=== PATIENT | male | born 1955 | race Caucasian/White ===

== ENCOUNTER 2016-10-10 19:16 | Inpatient (IN) | payer SELFPAY ==
[~2016-10-10] VITALS: Ht 180.3 cm; Wt 77.8 kg
[2016-10-10] VITALS (11 sets, daily range): BP systolic 82–148; BP diastolic 44–113; PULSE 44–67; RESP 18–27; O2SAT 95–100
--- NOTE | 2016-10-10 19:11 | ED.REPORT ---
HPI-Cardiac Arrest Date of Service Oct 10, 2016 ED Provider: Dr. Penny 61 y/o male (not on anticoagulants) with a hx of recurrent PE, Hodgkins disease (treated with radiation), HTN and hypothyroidism presents to the ED via EMS after he was found unconscious post cardiac arrest, approximately 40 minutes ago. As per the police, the pt had been talking to his son and daughter normally. The son left the room for a few minutes and returned to find the pt on the floor. His son did CPR but did not check his pulse initially. When the EMS arrived, the pt was unresponsive (GCS =3) and was lying in a pool of clotting blood around his head. He has a recent hx of blood clots and falls. He had agonal breathing and equal and non-reactive pupils. He also had runs of VTACH. He was given 140 succ and 10 versed total. Since then, he has been bradycardic (lowest at 51). The pt was intubated en route. The pt's family reports that he has been homeless for several months and has not been taking his medications. FAST exam was done and resulted negative. His aorta is normal. Nursing Notes Stated Complaint: POSSIBLE HEAD BLEED Nursing Notes Reviewed: Yes Allergies: Coded Allergies: No Known Allergies (Verified Allergy, Unknown, 10/10/16) General Time Seen by Provider: 19:18 Chief Complaint Cardiac arrest, found dwn Down Time Prior to EMS: 21 - 40 min Hx Obtained From: EMS, Police Arrived By: Ambulance Onset Occurred: 31 - 45 minutes ago Symptom Duration: Since onset Recent Healthcare: No recent doctor visit Similar Sx Previous: No Past Medical History Past Medical History 1. Recurrent pulmonary embolism. Currently, the patient is on chronic anticoagulation therapy with Coumadin. 2. Moderate aortic stenosis. 3. Hodgkin's disease, treated with radiation. 4. Esophageal stricture. 5. Hypertension. 6. Dyslipidemia. 7. Depression requiring voluntary hospitalization at [facility]. 8. Anxiety. 9. Pericardial tamponade secondary to hemorrhage while INR being supratherapeutic of 9. 10. Hypothyroidism. 11. Restless leg syndrome. 12. Sciatica. 13. History of small bowel obstruction requiring lysis of adhesions. 14. Klebsiella pneumonia. 15. History of Rheumatic Fever per ex-. Past Surgical History PAST SURGICAL HISTORY: 1. Appendectomy. 2. Cholecystectomy. 3. Exploratory laparotomy with lysis of adhesions secondary to small bowel obstruction. 4. L-spine surgery. Family History The patient's mother in her 50s from CVA. The patient's father lived into his 70s. Smoking History Unknown if Ever Smoker Social History Other Social History: Homeless Ambulatory Status Independent Review of Systems EMS reports: head bleed Unable to Obtain ROS Patient condition, Intubated Complete sys rev & neg: except as marked. Physical Exam General: Pt moving periodically Head/Eyes: Small abrasion and hematoma to his occiput and bleeding was controlled. Neurologic: Babinski present on the right leg. Initial Vital Signs Vital Signs (First) Date Time Temp Pulse Resp B/P Pulse Ox O2 Delivery O2 Flow Rate FiO2 10/10/16 19:19 97 10/10/16 19:28 51 24 121/113 Mechanical Ventilator Initial VS: Reviewed, Vital signs abnormal Extremities: Vascular intact, Neuro intact, No swelling Skin: Warm, Dry, No cyanosis Alertness: Positive: Responds to pain stimuli Respiratory / Chest: Atraumatic, Breath sounds NL, Breath sounds = bilat, No respiratory distress, No rales, No rhonchi, No wheezing Cardiovascular: Heart sounds NL, No gallop, No murmurs, No rubs Heart Rate / Rhythm: Positive: Bradycardia Abdomen: Atraumatic, Soft, No rebound, BS normoactive, No distention Interpretation & Diagnostics Lab Results Interpretation Result Diagram: 10/10/16194210/10/161942 Test 10/10/16 19:43 10/10/16 19:44 White Blood Count 17.8th/mm3 (3.8-10.1) Red Blood Count 3.54mil/mm3 (4.40-5.80) Hemoglobin 11.6g/dL (13.8-17.2) Hematocrit 35.3% (41.0-50.0) Mean Corpuscular Volume 99.7fL (81-100) Mean Corpuscular Hemoglobin 32.8pg (27.0-35.0) Mean Corpuscular Hemoglobin Concent 32.9% (32.0-37.0) Red Cell Distribution Width 17.1% (12.3-15.4) Platelet Count 636bil/L (150-400) Neutrophils (%) (Auto) 72.8% (40-74) Lymphocytes (%) (Auto) 15.4% (14-46) Monocytes (%) (Auto) 10.9% (4-12) Eosinophils (%) (Auto) 0.1% (0-5) Basophils (%) (Auto) 0.3% (0-3) Prothrombin Time 11.4sec (8.1-12.5) Prothromb Time International Ratio 1.06ratio Sodium Level 140mEq/L (134-144) Potassium Level 4.0mEq/L (3.5-5.2) Chloride Level 97mEq/L (97-108) Carbon Dioxide Level 17mmol/L (18-29) Blood Urea Nitrogen 10mg/dL (8-27) Creatinine 1.02mg/dL (0.76-1.27) Estimat Glomerular Filtration Rate 78mL/min (>59) Glucose Level 200mg/dL (60-99) Calcium Level 8.5mg/dL (8.5-10.1) Magnesium Level 2.3mg/dL (1.6-2.6) Total Bilirubin 0.6mg/dL (0.0-1.2) Aspartate Amino Transf (AST/SGOT) 30U/L (0-50) Alanine Aminotransferase (ALT/SGPT) 12U/L (0-44) Alkaline Phosphatase 105U/L (25-160) Troponin T 0.447ug/L (0.0-0.011) Total Protein 6.2g/dL (6.4-8.4) Albumin 3.5g/dL (3.4-5.0) Salicylates Level < 3.0ug/mL (30-250) Acetaminophen Level < 15.0ug/mL Rx (10-25) Alcohols < 10mg/dL (0-10) Hold Blue Top Tube Received (Received) Hold [place] Top Tube Received (Received) Hold Obrien Top Tube Received (Received) ECG Interpretation ECG Interpretation: Sinus bradycardia. Rate [address] elevation in V3, V4, V5 and V6 Time: 19:44 Interpreted by: ED physician X-Ray Chest Interpretation Chest Xray Interpretation: IMPRESSION: Support lines as above. Questionable focal opacity versus artifact from pacer lead in the right upper lobe. Dictated by: Carol Sutton M.D. on 10/10/2016 at 20:30 Approved by: Carol Sutton M.D. on 10/10/2016 at 20:32 View: Portable, 1 view Interpretation / Wet Read by: Interpret - Radiologist CT Head Interpretation Impression: No acute intracranial process. Signed by Dr. Sutton 10/10/16 19:51 Study: Head CT no contrast Interpretation / Wet Read by: Interpret - Radiologist Re-Eval/Medical Decision Med Decision/Clinical Course The patient came in intubated and went straight to CT, there is concern for possible bleed. CT is negative for stroke or bleed and the patient was moving all extremities requiring sedation. Upon arrival of EMS the patient was breathing but was unresponsive and did have a pulse and pressure. He performed CPR because the patient was unresponsive however he did not check for a pulse. It seems like the patient had a dysrhythmia causing syncope and his EKG here reveals a STEMI. The patient went to [facility]. According to his son he has not been caring for himself, he is in homeless for the past year. Re-Evaluation/Progress #1: Time of Eval: 19:38 Re-Evaluation/Progress Note: FAST exam done and resulted negative. His aorta is normal. Re-Evaluation/Progress #2: Time of Eval: 19:58 Re-Evaluation/Progress Note: Talked to the family. They state the pt has been homeless for a few months and has not been taking his medication. Discussed lab results, imaging results, diagnosis and plan to admit. They understand and agree with the plan. All questions answered. Consultation #1: Referral / Consult Name: Shan Chavez MD Consulted With: Cardiology Call Returned at: 19:52 Note: Dr. Chavez recommends STEMI activation and admiting the pt. Consultation #2: Referral / Consult Name: Vikki Ball DO Consulted With: Hospitalist Call Returned at: 21:47 General Duty Nurse: Will see patient, Agrees with eval, Agrees with plan, Accepts admit Counseled Regarding: Diagnosis, Lab results, Need for admission Discharge & Departure Impression: Primary Impression: ST elevation myocardial infarction (STEMI) Involved coronary artery: unspecified coronary artery Qualified Code: I21.3 - ST elevation (STEMI) myocardial infarction of unspecified site Disposition: ADMITTED TO HOSPITAL All VS Reviewed: Yes Crit Care Except Billable Proc Time Spent: 30-74 minutes Services Performed: Patient management by me, Time spent at bedside, Reviewing test results, Reviewing imaging, Discussing patient care, Documentation in record, Time with fam/surrogate Scribe Attestation Portions of this note were transcribed by Jacques Caballero. I, , personally performed the history, physical exam and medical decision-making;I reviewed and confirmed the accuracy of the information in the transcribed note. Signed by Phylicia Fernandez. 10/10/16 22:22 Susie Penny MD Oct 10, 2016 19:11 Jacques Caballero Oct 10, 2016 20:27
[~2016-10-10 19:16] MED LIST: BUPR100T7 PO; LEVO25TA5 PO; LISI-610 PO; PANT40TA3 PO; QUET25TA73 PO; RIVA20TA PO
[2016-10-10 19:47] LABS: BASOPHILS % (AUTO) 0.3 % (0-3); EOSINOPHILS % (AUTO) 0.1 % (0-5); MONOCYTES % (AUTO) 10.9 % (4-12); Mean Corpuscular Hemoglobin 32.8 pg (27.0-35.0); Mean Corpuscular Volume 99.7 fL (81-100); NEUTROPHILS % (AUTO) 72.8 % (40-74); Platelet Count 636 bil/L (150-400)
[2016-10-10] MEDS ORDERED: Nitroglycerin 50,000 mcg/250 mL D5W Premix IV ONE ×2 (19:55→20:17)
[2016-10-10] MEDS ORDERED: Heparin 5,000 Unit/mL Inj ONE (19:55)
[2016-10-10] MEDS ORDERED: Heparin 25,000 Unit/500 mL 0.45% NS Premix IV ONE (19:56)
[2016-10-10] MEDS ORDERED: fentaNYL-PF 50 mCg/mL 2 mL Inj ONE (19:58)
[2016-10-10] MEDS ORDERED: fentaNYL 2,500 mCg/250 mL IV Premix IV SCH (20:00)
[2016-10-10 20:15] LABS: Magnesium 2.3 mg/dL (1.6-2.6)
[2016-10-10] MEDS ORDERED: Heparin 10,000 Unit/1,000 mL NS Premix IV ONE (20:17)
[2016-10-10] MEDS ORDERED: Heparin 1,000 Unit/mL 10 mL Inj ONE (20:17)
[2016-10-10] MEDS ORDERED: Heparin 1,000 Units/500 mL NS Premix IV ONE (20:17)
[2016-10-10] MEDS ORDERED: Atropine 1 mg/10 mL (Code) Syringe ONE ×3 (20:20→21:00)
[2016-10-10] MEDS ORDERED: Atropine 1 mg/10 mL (Code) Syringe IVPUSH PRN ×3 (20:20→23:00)
[2016-10-10] MEDS ORDERED: 0.9% Sodium Chloride 1,000 ML IV ONE (20:20)
--- NOTE | 2016-10-10 20:33 | DRSVH ---
PROCEDURE: X-RAY CHEST ONE VIEW, PORTABLE ([id number]) INDICATIONS: post intubation TECHNIQUE: One view of the chest was acquired. COMPARISON: None. FINDINGS: Surgical changes and devices: Endotracheal tube is present approximately 35mm superior to the fernando. Nasogastric tube is present with distal tip projecting below the left hemidiaphragm. Lungs and pleura: No pleural effusions or pneumothorax. Questionable increased opacity versus artifa ct from overlying pacer lead within the right upper lobe. Mediastinum: Mediastinal contours appear normal. Heart size is normal. Bones and chest wall: No suspicious bony lesions. Overlying soft tissues appear unremarkable. IMPRESSION: Support lines as above. Questionable focal opacity versus artifact from pacer lead in the right upper lobe. Dictated by: Carol Sutton M.D. on 10/10/2016 at 20:30 Approved by: Carol Sutton M.D. on 10/10/2016 at 20:32
[2016-10-10] MEDS ORDERED: DOPamine 800 mg/250 mL D5W Premix IV ONE (20:59)
[2016-10-10] MEDS ORDERED: Phenylephrine/NS-PF 100 mCg/mL 5 mL Syringe IVPUSH ONE (21:00)
[2016-10-10] MEDS ORDERED: 0.9% Sodium Chloride 500 ML IV ONE (21:20)
[2016-10-10] MEDS ORDERED: Ondansetron 2 mg/mL 2 mL Inj IVPUSH PRN (21:45)
[2016-10-10 21:51] LABS: INR 1.06 ratio
[2016-10-10] MEDS ORDERED: fentaNYL 2,500 mCg/250 mL 2,500 MCG in IV Premix 1 EACH IV SCH (22:46)
[2016-10-10] MEDS ORDERED: 0.9% Sodium Chloride 1,000 ML IV PRN (22:56)
[2016-10-10] MEDS ORDERED: 0.9% Sodium Chloride 250 ML IV PRN (22:56)
--- NOTE | 2016-10-10 23:01 | PCM.HPMED ---
Subjective Date of Service Oct 10, 2016 Primary Provider: Admitting Physician: Shan Chavez MD Primary Care Physician: Miranda Attending Physician: Shan Chavez MD Admit Status: From the Emergency Department Chief Complaint: Syncope History of Present Illness: Patient Isac Tracy 61 y/o male with a history of recurrent pulmonary emboli currently not on anticoagulation, Hodgkins disease in remission after treatment with radiation, HTN and hypothyroidism presents to the ED via EMS after a witnessed ground-level fall leading to unconscious state. Per the family's report the patient was in his normal state of health, besides a recent fall in the shower where the patient claimed to be uninjured, and heading to lunch when he fell backwards striking his head and subsequently following unconsciousness. The son was able to call 911 where they instructed him to begin CPR prior to a pulse check. EMS arrived some 3-5 minutes and the patient was found unresponsive with a GCS score of 3 lying in a pool of blood originating from an occiput contusion. Per ED report from EMS the patient had agonal breathing and equal and nonreactive pupils as well as runs of V. tach the patient was intubated in route using succinate and Versed. Family indicates that the patient has not been taking any medications including any anticoagulation and has been homeless living in his car for approximately one year. The patient one month ago was able to temporarily move into a hotel and begin receiving Social Security. In the [facility] ED the patient was taken to CT for head bleed and clear, FAST exam for abdominal injuries which was negative, however EKG changes including ST elevations in V3 through V6 and elevated troponin gave the patient a likely diagnosis of in STEMI and he was immediately taken to the cardiac catheterization lab where the patient received a balloon angioplasty to his proximal circumflex per nursing reports, the patient also developed a total heart block with temporary pacer in place, however the patient's blood pressure remained relatively stable and his heart rate became bradycardic into the mid to high 40s. The patient continues to have a worsening severe aortic stenosis with significant pressure gradient noted in the cardiac catheterization. Review of Systems: Unable to obtain given patient is intubated and sedated. Allergies Coded Allergies: No Known Allergies (Verified Allergy, Unknown, 10/10/16) Home Medications Family states that the patient has been not taking any recommended medications. PMH Past medical history confirmed with family 1. DVT/Recurrent pulmonary embolism not currently on anticoagulation 2. Moderate aortic stenosis. 3. Hodgkin's disease, treated with radiation. 4. Esophageal stricture. 5. Hypertension. 6. Dyslipidemia. 7. Depression requiring voluntary hospitalization at [facility]. 8. Anxiety. 9. Pericardial tamponade secondary to hemorrhage while INR being supratherapeutic of 9. 10. Hypothyroidism. 11. Restless leg syndrome. 12. Sciatica. 13. History of small bowel obstruction requiring lysis of adhesions. 14. Klebsiella pneumonia. 15. History of Rheumatic Fever per ex-. Surgical History Past surgical history confirmed with family 1. Appendectomy. 2. Cholecystectomy. 3. Exploratory laparotomy with lysis of adhesions secondary to small bowel obstruction. 4. L-spine surgery. Family History The patient's mother in her 50s from CVA. The patient's father lived into his 70s. Sister of ovarian cancer in her 40s. 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: retired [employer] employee Hx Alcohol Use: Yes (sporadic use per family report) Hx Substance Use: No Hx Tobacco Use: Yes Smoking Status: Former Smoker (quit a number of years prior) Years of Smokin Living Arrangement: Homeless Exam Vital Signs Vital Sign - Last Date Time Temp Pulse Resp B/P Pulse Ox O2 Delivery O2 Flow Rate FiO2 10/10/16 22:39 51 87/54 99 50 10/10/16 21:19 27 Mechanical Ventilator Exam General: senior patient with normal body habitus intubated and sedated with c- collar in place in a CCU bed Eyes: Pupils constricted but equal round and reactive to light, anicteric sclera , noninjected conjunctiva HENT: endotracheal tube in place, without nasal discharge or clotted blood or CSF fluid noted, posterior occiput with noted coagulated blood but no acute bleed Neck: Supple, trachea midline, no thyromegaly, no JVD noted however difficult exam given c-collar in place Cardiovascular: Regular rate and rhythm, significant noted systolic ejection murmur at right upper sternal border and at apex, no rubs or gallops noted Lungs: Mild coarse breath sounds noted in the posterior mid and basal lung oswald as well as in the right axillary, clear to auscultation in the anterior lung oswald, no wheezing or rhonchi noted Abdomen: Soft, nontender, nondistended, tympanic to percussion, no organomegaly noted, significant noted well healed bilateral oblique and midline scars from exploratory laparotomy : Ladd catheter in place, pink urine in place Extremities: Without pitting edema, Pulses intact bilaterally radial and dorsalis pedis, right femoral groin site with temporary pacer in place site is without hematoma or erythema Skin: Warm and dry on torso, cool and dry on extremities Neuro: Unable to assess given intubated and sedated Psych: Unable to assess given intubated and sedated Lab and Diagnostics Result Diagram: 10/10/16194210/10/161942 X-Rays, CTs and MRIs X-RAY CHEST ONE VIEW, PORTABLE IMPRESSION: Support lines as above. Questionable focal opacity versus artifact from pacer lead in the right upper lobe. Approved by: Carol Sutton M.D. on 10/10/2016 at 20:32 CT head without contrast 1. No acute intracranial processes Approved by: Carol Sutton M.D. on October 10, 2016 Assessment & Plan Patient Isac Tracy 61 y/o male with a history of recurrent pulmonary emboli currently not on anticoagulation, Hodgkins disease in remission after treatment with radiation, HTN and hypothyroidism presents to the ED via EMS after a witnessed ground-level fall leading to unconscious state. # Acute respiratory arrest - Patient was intubated and sedated in the field following a witnessed ground- level fall with head contusion resulting in an unconscious state - Per ED note EMS reports patient had a GCS score of 3 and was intubated for acute respiratory arrest - The patient remains intubated and sedated post cardiac catheterization for NSTEMI described below - Ventilation order set, with RT following - Initial ABG shows pH of 7.3 with pCO2 26 and pO2 170 - Sedation to be continued with fentanyl, currently holding propofol given relative hypotension # Acute non-ST segment elevation myocardial infarction - In the [facility] ED EKG changes noted ST elevation in leads V3 through V6 consistent with acute lateral infarct - Troponins elevated at 0.44 at admission - Cardiology was consulted from the ED and the patient was taken back to the cardiac catheterization lab immediately after CT head noncontrast failed to reveal an acute intracranial bleed - Critical lesion noted in circumflex resulted in balloon angioplasty without stent placement - Cardiac catheterization failed to show any significant pathology consistent with ST changes in the lateral leads leading to a diagnosis of NSTEMI # Acute bradycardia - Patient developed notable bradycardia into 40s secondary to reported complete heart block while on cardiac catheterization - Temporary paced maker placed while in cardiac catheter lab - Cardiology consulted # Acute high anion gap metabolic acidosis with respiratory compensation - CMP shows anion gap of 26 with bicarbonate of 17 - Initial ABG shows pH of 7.3 with pCO2 26 and pO2 170 - Repeat ABG pH of 7.4 with pCO2 of 14.4 and pO2 188 - ASA negative - methanol, ethylene glycol, ketones and lactic acid order - initial lactic acid has returned at 8.7, however this as a late add on the a blood draw and likely is inaccurate, it will be repeated - Monitor with serial BMPs # Acute hypotension - Patient has remained normotensive in ED as well as during cardiac catheterization - Upon arrival to CCU patient's systolic blood pressure remained in the 80s with maps in the 60s - Patient has received 3700 mL's of normal saline since arrival - 500 mL bolus normal saline failed to significantly improve blood pressures - Continue to monitor - Patient only has peripheral IV lines will require central venous access if significant pressor support is required currently awaiting CT C-spine clearance after fall # Acute Leukocytosis - Family reports the patient was in his standard state of health prior to today' s events - Chest x-ray reported as questionable increased opacity versus artifact from overlying pacer lead within the right upper lobe. - Procalcitonin ordered and pending - UA and sputum culture ordered - Serial a.m. chest x-rays while intubated # Chronic anemia - Hemoglobin of 11.6 with MCV of 99 - FAST exam performed in ED failed to reveal any acute chest or abdominal process - Chest x-ray failed to show a hemothorax - Anemia panel ordered - Monitor with serial CBC # Acute Thrombocytosis - Platelet count of 636,000 - Likely elevated due to acute phase reactant nature of platelets - Monitor # Acute hyperglycemia - Blood glucose elevated at admission - Hemoglobin A1c ordered - Low dose correction scale regular insulin DVT prophylaxis: Heparin drip initiated in ED through cardiac catheterization currently discontinued will initiate subcutaneous heparin 12 hours postcardiac catheterization GI prophylaxis: Not indicated at this time CODE STATUS full Patient is admitted to the CCU on inpatient status with expected length of stay greater than two midnights given presenting symptoms, likely diagnosis, possible complications, and required treatment. Pain Evaluation: Adequate Pain Control GI Prophylaxis: Not indicated VTE Prophylaxis: SCDs, Other (previously on heparin drip during cardiac catheterization) VTE Mechanical Devices: Intermittant Pneumatic CD Resuscitation Status: CPR: Attempt Resuscitation Attending Statement The patient was seen and examined together with house staff on 10/11/2016 and I agree with the history, exam and plan as outlined in the note above. Gary Hernadez DO Oct 10, 2016 23:01 Vikki Ball DO Oct 11, 2016 04:32
[2016-10-11] VITALS (7 sets, daily range): BP systolic 77–101; BP diastolic 42–59; PULSE 51–55; RESP 24–27; O2SAT 99–100
--- NOTE | 2016-10-11 00:11 | ABG ---
DateTimeAnalyzed 00:05:00 -_ pH ____7.396 - 7.350 7.450 pCO2 ___14.4__ -mmHg 35.0 45.0 pO2 188 -mmHg 69.0 116 HCO3- ____8.6__ -mmol/L 22.0 26.0 ABE __-14.5__ -mmol/L -2.0 2.0 tHb ___11.4__ -g/dL O2Hb ___96.7__ -% COHb ____1.5__ -% MetHb ____0.0__ -% sO2 ___97.9__ -% 25.0 FIO2 ___21.0__ -% PEEP ____5.0__ -cmH2O Set_RR ___18.0__ -b/min Vt __500.0__ -L Drawn By md - Date/Time Notified____ 00:11:00 -_ Spontaneous_RR ___27.0__ -b/min Oxygen Device 1 __CANNULA - Notified By MD - Notified Whom RN C.JENIFER - Age 54 -years B 759 -mmHg tO2 ___15.8__ -Vol% John test N/A -
--- NOTE | 2016-10-11 00:13 | NUR ---
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 Intubated showing signs of hyposiz with transfer. Pt also has temporary pacemaker with R groin access. Tele is 100% v paced. SpO2 increased with FiO2 from vent and is currently high 90s on 50% FiO2. RT managing. Pt currently not on any sedation or medication. Only responsive to deep pain stimuli in B feet. Pupils slow to react. Minimal painful response in hands. Awaiting CT of cspine. Pt currently has c collar on for safety as this was not done in initial CT. Pt is supine on vent. OG present to continuos suction. Ladd patent to gravity with minimal output desput being fluid positive > 4L. BP hypotensive but MAP remains in 60s. Family at bedside and aware of plan and pt status. Care ongoing
[2016-10-11] MEDS ORDERED: Dextrose 10% 250 ML IV PRN (00:15)
[2016-10-11] MEDS: Chlorhexidine 0.12% 15 mL Oral Solution MT SCH ×2 (00:30→02:13)
--- NOTE | 2016-10-11 01:00 | CONS ---
[address] [address] CONSULTATION REPORT PATIENT: GHAZAL VILLALOBOS : 1955 MR#: [id number] ADMIT: 10/10/2016 JOB ID: [id number] DATE OF SERVICE: 10/10/2016 CHIEF COMPLAINT: Cardiac arrest. REQUESTING PHYSICIAN: Susie Penny MD HISTORY OF PRESENT ILLNESS: The patient was seen in the emergency department at the request of Dr. Penny. History was obtained through the chart, the patient's son, daughter and [id number]. The patient is intubated and incapable of providing any history. The patient was talking to his son. They were planning to go out for dinner when he suddenly fell. That is all the son knows, but the son did notice some bruising on the patient and apparently the son believes that the patient had fallen earlier in the day as well. According to the daughter, he has history of congestive heart failure. She is not sure who his primary care physician or customer development representative is. The patient has been living as a homeless person according to the patient's daughter. The son states that his father did not complain of any chest discomfort. ALLERGIES: Unknown. MEDICATIONS AT HOME: Unknown. As per chart, it is supposed to be Wellbutrin, levothyroxine, Zestril, pantoprazole, quetiapine, and rivaroxaban. PAST MEDICAL HISTORY: I have reviewed his charts from Cardiology. He was last seen in the Cardiology office in [address] Newsome. According to those notes, the patient has history of aortic stenosis. His last echocardiogram was in 2012, and showed a peak velocity of 3.7 m/sec. His LVEF was 60-70%. In 2009, he had pericardial tamponade which was felt to be secondary to excessive anticoagulation, and he had pericardiocentesis performed. He also has history of severe depression, hypothyroidism and history of Hodgkin's disease, status post mantle radiation. He also has a history of DVT as well as multiple pulmonary emboli. REVIEW OF SYSTEMS: Not possible. FAMILY HISTORY: Not possible. The patient is intubated. PERSONAL HISTORY: As per HPI. He was a heavy smoker. PHYSICAL EXAMINATION: On examination, intubated. The patient is somewhat restless. He is starting to breathe on his own. He is moving all four limbs. NECK: In a neck collar. Chest: Clear to anteriorly. Heart sounds S1, S2, regular. Systolic murmur at the base. Abdomen is soft. Extremities: Negative for CCE. RUBBER MOLDER: The patient is heavily sedated. ELECTROCARDIOGRAM: Sinus rhythm, with query anterolateral MO, age unknown. There are some Q-waves in the anterior leads. It is difficult to get a still baseline. The patient is, as mentioned, restless and the EKG is hard to interpret. ASSESSMENT AND PLAN: This gentleman has h/o , CHF and multiple comorbidities, his EKG is suggestive of a recent cardiac event. I feel it would be appropriate to take him to the roofing laborer. I had a long discussion with the patient's family. They have consented to proceed ahead with angiography. Risks, benefits were explained. His son signed the consent.The patient will undergo angiography, and further management will be dictated by the results of his angiogram. Overall prognosis is guarded. TIME SPENT: Approximately 75 minutes were spent in organizing the patient's care. NATE
--- NOTE | 2016-10-11 01:44 | CS94 ---
[address] [address] DIAGNOSTIC CARDIAC CATHETERIZATION PATIENT: GHAZAL VILLALOBOS : 1955 MR#: [id number] ADMIT: 10/10/2016 JOB ID: [id number] SERVICE DATE: INDICATION: Syncope. PROCEDURE DETAILS: Please refer to the procedure log for complete details. Briefly, right femoral approach, 6-Romanian system. Further details are enumerated in the procedure log, to which the coders and the readers are referred. ANGIOGRAPHIC FINDINGS: 1. Heavy calcification of the AV groove is noted. 2. Left main no significant disease. 3. LAD in its proximal segment has a long tubular stenosis of about 40% to 50%. The diagonals have mild diffuse disease of 20% or so. 4. Circumflex in its proximal segment has a tight 80% to 90% lesion. This comes off at a bend of about 90 degrees. 5. Right coronary artery is diffusely diseased as well. There was damping of the catheter and the RCA has about 40% to 50% disease in its ostium, as mentioned it is diffusely diseased. In its mid segment there is a discrete lesion of about 50% to 60%. LEFT HEART CATHETERIZATION: A brief attempt was made to cross this valve. We decided not to cross this valve given the heavy calcification. IMPRESSION: I will discuss with the family members whether or not they want me to proceed ahead with an intervention on the circumflex. I think the patient will require aortic valve surgery rather soon. If I do end up intervening on his circumflex it will be a balloon angioplasty. Given the fact that on our EKG here his ST segments have seemed to have normalized and there is no way of knowing whether he is having any ongoing discomfort, it might be appropriate to manage him medically, especially since his neurological status at this point is at best tenuous. Depending upon what they decide, we will then either treat him medically or do a balloon angioplasty on the circumflex, and once he is more awake and alert he can be sent for aortic valve surgery.
--- NOTE | 2016-10-11 01:48 | DI95 ---
[address] [address] INTERVENTIONAL CARDIAC CATHETERIZATION PATIENT: GHAZAL VILLALOBOS : 1955 MR#: [id number] ADMIT: 10/10/2016 JOB ID: [id number] DATE OF PROCEDURE: PROCEDURE: Percutaneous intervention on the circumflex and temporary pacemaker insertion. HISTORICAL DETAILS: This patient came in with a suspected lateral MO and syncope. I spoke with the patient's family, and after a prolonged discussion they agreed to let me proceed ahead with an angioplasty. The concerns about stenting him were: 1. He might need bypass surgery. 2. His noncompliance with medications and stents they felt were not a good idea. PROCEDURE: A temporary pacemaker was inserted because initially the patient was in 2:1 AV block with good blood pressure. However, he started developing a higher grade AV block and one time he was in 3:1 and then it appeared that he was in complete heart block. Lastly, while doing this, we were also able to cross the aortic valve somewhat serendipitously and he has a 30 mm gradient upon pullback. This would be suggestive of significant aortic stenosis. INTERVENTIONAL DETAILS: These are well enumerated in the procedure log, to which the reader and the coders are referred. Briefly, Voda guide run-through wire and prolonged 1 minute inflation was done with a 2.0 balloon. Final angiographic results were excellent with reduction of stenosis from 80% to 90% to about 30%. Next, temporary pacemaker was inserted via right femoral approach. This was a balloon-tipped pacemaker. It was floated and the patient was left at the rate of 50 in an asynchronous mode, and the output was left at 5 mV, the sensitivity was 0.5. Next, the patient will be admitted to CCU.
[2016-10-11] MEDS ORDERED: Insulin Human REGular 300 Unit/3 mL Inj SUBQ SCH (02:30)
--- NOTE | 2016-10-11 03:01 | ABG ---
DateTimeAnalyzed 02:53:56 -_ pH ____7.179 - 7.350 7.450 pCO2 ___17.8__ -mmHg 35.0 45.0 pO2 134 -mmHg 69.0 116 HCO3- ____6.6__ -mmol/L 22.0 26.0 ABE __-19.9__ -mmol/L tHb ___12.6__ -g/dL O2Hb ___97.4__ -% COHb ____0.7__ -% 1.5 MetHb ____0.2__ -% sO2 ___98.2__ -% FIO2 ___21.0__ -% PEEP ____5.0__ -cmH2O Set_RR 18 -b/min Vt __500.0__ -L Drawn By MD - Date/Time Notified____ 03:00:00 -_ Spontaneous_RR 24 -b/min Oxygen Device 1 VENTILATOR - Notified By MD - Notified Whom DR HASANDRAS - Age 54 -years K+ ____6.6__ -mmol/L tO2 ___17.5__ -Vol% John test N/A -
[2016-10-11] MEDS ORDERED: Linezolid Inj 600 MG in IV Premix 1 EACH IV SCH (03:10)
[2016-10-11] MEDS ORDERED: Sodium Bicarb (50 mEq) 8.4% 1 mEq/mL 50 mL Syringe IVPUSH ONE (03:10)
[2016-10-11] MEDS ORDERED: Norepinephrine 8,000 mCg/250 mL NS Premix IV ONE (03:33)
[2016-10-11] MEDS ORDERED: levETIRAcetam Inj 1,000 MG in IV Premix 1 EACH IV ONE (03:35)
[2016-10-11] MEDS ORDERED: Sodium Acetate Inj 150 MEQ in Dextrose 5% 1,000 ML IV ONE (03:40)
[2016-10-11 03:56] LABS: Mean Corpuscular Hemoglobin 32.2 pg (27.0-35.0); Mean Corpuscular Volume 103.7 fL (81-100)
[2016-10-11] MEDS ORDERED: Cefepime Inj 2,000 MG in Dextrose 5% Minibag Plus 100 ML IV ONE (04:00)
[2016-10-11] MEDS ORDERED: metroNIDAZOLE Inj 1,000 MG in IV Premix 1 EACH IV SCH (04:30)
[2016-10-11] MEDS ORDERED: Propofol 10,000 mCg/mL 100 mL Inj ONE (04:50)
--- NOTE | 2016-10-11 05:15 | ABG ---
DateTimeAnalyzed 05:08:11 -_ pH ____7.136 - pCO2 ___29.8__ -mmHg pO2 ___39.9__ -mmHg HCO3- ___10.0__ -mmol/L 22.0 26.0 ABE __-17.6__ -mmol/L tHb ___12.2__ -g/dL O2Hb ___51.6__ -% COHb ____0.9__ -% 1.5 MetHb ____0.2__ -% sO2 ___52.2__ -% FIO2 ___21.0__ -% PEEP ____5.0__ -cmH2O Set_RR 18 -b/min Vt __500.0__ -L Drawn By RN - Date/Time Notified____ 05:15:00 -_ Spontaneous_RR 29 -b/min Oxygen Device 1 VENTILATOR - Notified By MD - Notified Whom RN C.JENIFER - Age 54 -years K+ ____6.3__ -mmol/L tO2 ____8.9__ -Vol% John test N/A -
--- NOTE | 2016-10-11 05:56 | PROCED ---
[address] [address] PROCEDURE NOTE PATIENT: GHAZAL VILLALOBOS : 1955 MR#: [id number] ADMIT: 10/10/2016 JOB ID: [id number] DATE OF SERVICE: 10/11/2016 TIME: Approximately 4:30. POSTOPERATIVE DIAGNOSIS(ES): PREOPERATIVE DIAGNOSIS(ES): SURGEON: Ghazal Farley MD PROCEDURE: Central venous catheter placement in the right internal jugular vein. INDICATION: Frequent lab draws, as well as administration of vasoactive meds. DESCRIPTION OF PROCEDURE: A time-out was completed verifying the correct patient, procedure, site, positioning, and availability of ultrasound. The patient was placed in a dependent position appropriate for central line placement for right IJ cannulation. The patient's right neck was prepped with chlorhexidine. Please note that consent had been obtained from the family prior to proceeding with the procedure. The patient was intubated and sedated so no local anesthetic was used. Under direct ultrasound guidance, I received aspiration of venous blood from the right internal jugular vein. I then threaded an angiocatheter over a needle. To this angiocatheter, I placed pressure transducer tubing and confirmed nonpulsatile dark blood with a pressure consistent with venous pressure and not his stomach arterial pressure. I then inserted a wire through the angio catheter, removed the angiocatheter using a scalpel and performed a skin gregory and dilated this skin gregory and tissue to the vein with a dilator, removed the dilator and over the wire threaded a triple-lumen tube. The wire was then removed and I was able to aspirate and inject each port. The patient was connected to a CVP monitor after securing and sterile dressing was applied. CVP was 23 which was consistent to the pressure I received from the pressure transducer tubing. A chest x-ray will be done at this point and will be reviewed by Dr. Ball per our discussion. ESTIMATED BLOOD LOSS: Minimal. COMPLICATIONS: There were no noted complications.
[2016-10-11] MEDS ORDERED: Morphine 100 mg/100 mL NS 100 MG in IV Premix 1 EACH IV SCH (07:55)
--- NOTE | 2016-10-11 07:55 | PCM.PNMED ---
Subjective Date of Service Oct 11, 2016 Subjective patient is not sedated. Patient's son and daughter and ex- are in the room as well as a [id number]. He appears comfortable Numerous overnight events culminating with diagnosis of a traumatic subarachnoid , hypotension, and ST E MRI. The patient has a long history of mental illness has been homeless for a year until recently. The decision has been made for comfort care overnight. His last lactic acid was over 15. The agree to comfort care and compassion extubation. Exam Vital Signs Vital Sign - Last Date Time Temp Pulse Resp B/P Pulse Ox O2 Delivery O2 Flow Rate FiO2 10/11/16 05:16 51 97/51 99 45 10/11/16 00:47 35.8 27 Mechanical Ventilator Intake and Output 10/10/16 10/10/16 10/11/16 Cumulative From/Thru 15:00 23:00 07:00 10/10/16 19:28 - 10/10/16 22:50 Intake Total 3000 ml 3000 ml Balance 3000 ml 3000 ml Intake IV Total 3000 ml 3000 ml Exam Intubated, calm. No apparent distress. Anicteric sclera. Lungs are clear with normal rate and effort Heart is regular without murmur gallop or rub Abdomen soft nontender, flat Extremities are free of edema. Skin is free of rash or lesions. IVs and Medications Medications Reviewed: Medications were reviewed in detail Lab and Diagnostics Result Diagram: 10/11/16 0345 10/11/16 0345 X-Rays, CTs and MRIs X-RAY CHEST ONE VIEW, PORTABLE IMPRESSION: Support lines as above. Questionable focal opacity versus artifact from pacer lead in the right upper lobe. Approved by: Carol Sutton M.D. on 10/10/2016 at 20:32 CT head without contrast 1. No acute intracranial processes Approved by: Carol Sutton M.D. on October 10, 2016 Assessment & Plan Patient Isac Tracy 61 y/o male with a history of recurrent pulmonary emboli currently not on anticoagulation, Hodgkins disease in remission after treatment with radiation, HTN and hypothyroidism presents to the ED via EMS after a witnessed ground-level fall leading to unconscious state. # Acute respiratory arrest, POA and active. - Patient was intubated and sedated in the field following a witnessed ground- level fall with head contusion resulting in an unconscious state - Per ED note EMS reports patient had a GCS score of 3 and was intubated for acute respiratory arrest - The patient remains intubated and sedated post cardiac catheterization for NSTEMI described below - Ventilation order set, with RT following - Initial ABG shows pH of 7.3 with pCO2 26 and pO2 170 - Sedation to be continued with fentanyl, currently holding propofol given relative hypotension Family requests compassion extubation and comfort care # Acute non-ST segment elevation myocardial infarction, POA and active. - In the [facility] ED EKG changes noted ST elevation in leads V3 through V6 consistent with acute lateral infarct - Troponins elevated at 0.44 at admission - Cardiology was consulted from the ED and the patient was taken back to the cardiac catheterization lab immediately after CT head noncontrast failed to reveal an acute intracranial bleed - Critical lesion noted in circumflex resulted in balloon angioplasty without stent placement - Cardiac catheterization failed to show any significant pathology consistent with ST changes in the lateral leads leading to a diagnosis of NSTEMI # Acute bradycardia, POA and improved. - Patient developed notable bradycardia into 40s secondary to reported complete heart block while on cardiac catheterization - Temporary paced maker placed while in cardiac catheter lab - Cardiology consulted # Acute high anion gap metabolic acidosis with respiratory compensation, POA and active. - CMP shows anion gap of 26 with bicarbonate of 17 - Initial ABG shows pH of 7.3 with pCO2 26 and pO2 170 - Repeat ABG pH of 7.4 with pCO2 of 14.4 and pO2 188 - ASA negative - methanol, ethylene glycol, ketones and lactic acid order - initial lactic acid has returned at 8.7, however this as a late add on the a blood draw and likely is inaccurate, it will be repeated - Monitor with serial BMPs # Acute hypotension, POA and active on vasopressors. - Patient has remained normotensive in ED as well as during cardiac catheterization - Upon arrival to CCU patient's systolic blood pressure remained in the 80s with maps in the 60s - Patient has received 3700 mL's of normal saline since arrival - 500 mL bolus normal saline failed to significantly improve blood pressures - Continue to monitor - Patient only has peripheral IV lines will require central venous access if significant pressor support is required currently awaiting CT C-spine clearance after fall # Acute Leukocytosis, POA and active - Family reports the patient was in his standard state of health prior to today' s events - Chest x-ray reported as questionable increased opacity versus artifact from overlying pacer lead within the right upper lobe. - Procalcitonin ordered and pending - UA and sputum culture ordered - Serial a.m. chest x-rays while intubated # Chronic anemia, POA and active - Hemoglobin of 11.6 with MCV of 99 - FAST exam performed in ED failed to reveal any acute chest or abdominal process - Chest x-ray failed to show a hemothorax - Anemia panel ordered - Monitor with serial CBC # Acute Thrombocytosis, POA and active - Platelet count of 636,000 - Likely elevated due to acute phase reactant nature of platelets - Monitor # Acute hyperglycemia, POA and improved - Blood glucose elevated at admission - Hemoglobin A1c ordered - Low dose correction scale regular insulin #. Severe lactic acidosis, POA and worsening. DVT prophylaxis: Heparin drip initiated in ED through cardiac catheterization currently discontinued will initiate subcutaneous heparin 12 hours postcardiac catheterization GI prophylaxis: Not indicated at this time CODE STATUS is changed to DNR/DNI. The patient requests comfort care. The patient will be placed on a morphine drip and comfort will be assured well he is compassion he extubated and all other active measures of support and treatment are reversed. Patient is admitted to the CCU on inpatient status with expected length of stay greater than two midnights given presenting symptoms, likely diagnosis, possible complications, and required treatment. GI Prophylaxis: Not indicated VTE Prophylaxis: SCDs, Other (previously on heparin drip during cardiac catheterization) VTE Mechanical Devices: Intermittant Pneumatic CD Resuscitation Status: CPR: Attempt Resuscitation John Caruso MD Oct 11, 2016 07:55
--- NOTE | 2016-10-11 08:15 | NUR ---
Neuro/CT Neuro Pt continued to decline with no obvious source. After placement of central line, took pt down to CT for repeat head CT as well as abd/pelvis. Night radiologist read immedialtely shows subarachnoid brain bleed. MD and family aware. Discussion to family to transfer vs. withdraw. They chose to withdraw care. [facility] called. Pt not candidate for organ donation. Care ongoing
--- NOTE | 2016-10-11 08:34 | DRSVH ---
PROCEDURE: X-RAY CHEST ONE VIEW, PORTABLE ([id number]) INDICATIONS: CENTRAL LINE PLACEMENT, acute respiratory failure TECHNIQUE: One view of the chest was acquired. COMPARISON: [facility], CR, XR CHEST 1VW (PORTABLE), 10/10/2016, 19:34. FINDINGS: Surgical changes and devices: There is a new central venous catheter with the tip projected over the cavoatrial junction. The endotracheal tube and NG tube are unchanged. Lungs and pleura: There is new consolidation and pleural effusion at the left lung base when compared with the study dated 10/10/16. Pleural thickening or a small apical pleural effusion is present in th e right lung. Mediastinum: Mediastinal contours appear normal. Heart size is enlarged, as before. Bones and chest wall: No suspicious bony lesions. Overlying soft tissues appear unremarkable. IMPRESSION: 1. New consolidation and pleural effusion at the left lung base when compared with yesterday's study. 2. Central venous catheter placement. Dictated by: Jahaira Harper M.D. on 10/11/2016 at 8:31 Approved by: Jahaira Harper M.D. on 10/11/2016 at 8:32
--- NOTE | 2016-10-11 09:51 | NUR ---
comfort care/weaning/morphine Orders received for comfort care at change of shift. 08 morphine infusion started at 2 mg per hour. Goal for respirations 10-20 for air hunger comfort discussed with Dr Zaldivar. Morphine increased until pt RR matching ventilator. Pt does not respond to firm nailbed pressure. Pupils fixed. Slowly weaned off propofol and levophed, all other drips dc'd. 1000 Respiratory therapy put pt on pressure support to see pts intrinsic respiratory rate. RR 22, morphine increased and Ativan given. Addendum: 10/11/16 at 1130 by BRISEIDA HOPE RN 1100 pressure support tired again. Pt RR 12 while on pressure support. Explained extubation to pt's family and asked them if they are ready. Pts family is ready to extubate. Madhu Hubbard RT extubates pt to room air. Pt tolerated well, no signs of discomfort. Pt continued to breathe on his own for approximately 10 minutes before pt was apenic. Transvenous pacemaker turned off 5 minutes after extubation with families understanding of the process of the heart slowing. Family at the bedside grieving appropriately. Dr Caruso checks in after expiration and comforts family. Time of 1110 confirmed by heart tone auscultation.
[2016-10-11] MEDS ORDERED: Sodium Chloride LOK Flush 10 mL Syringe IVFLUSH PRN ×2 (09:55)
--- NOTE | 2016-10-11 11:05 | DRSVH ---
PROCEDURE: CT CERVICAL SPINE WITHOUT CONTRAST ([id number]) INDICATIONS: fall TECHNIQUE: Noncontrast 3 mm thick sections acquired from the skull base to the T4 level. Sagittal and coronal r eformats were then constructed. For radiation dose reduction, the following was used: automated exp osure control, adjustment of mA and/or kV according to patient size. COMPARISON: [facility], CT, CT ANGIO CHEST PE, 09/04/2015, 12:06. [facility] , CT, CT BRAIN WO CON, 10/11/2016, 5:43. [facility], CT, CT BRAIN WO CON, 10/10/2016, 19:2 6. [facility], CT, C-SPINE W/O CONTRAST, 08/30/2009, 15:07. FINDINGS: Image quality: Excellent. Bones: No fractures or dislocations. Visualized superior ribs are intact. Multilevel degenerative changes are present Soft tissues: Prevertebral soft tissues are normal in thickness. No paravertebral hematomas. No ap ical pneumothoraces. There is increased hyperdense prominence along the tentorium, partial plate vis ualized when compared to prior CT brain of 10/10/16. Endotracheal and nasogastric tubes are present. V isualized portions of the lungs demonstrate patchy areas of opacity as well as pleural effusions. The re is mild aneurysmal dilation of the visualized ascending thoracic aorta measuring 44 mm in transver se dimension, unchanged. IMPRESSION: 1. No visualized cervical spine fracture. 2. Patchy areas of opacity as well as pleural effusions within the visualized lung apices. Please see CT chest abdomen pelvis report of 10/11/16 for further details. 3. Increased hyperdense prominence of the tentorium when compared to CT brain dated 10/10/16. Hemorrha ge cannot be excluded and CT brain is recommended for further evaluation. 4. Unchanged thoracic aorta aneurysmal dilation. Dictated by: Carol Sutton M.D. on 10/11/2016 at 10:51 Approved by: Carol Sutton M.D. on 10/11/2016 at 11:03
--- NOTE | 2016-10-11 11:50 | DRSVH ---
PROCEDURE: CT CHEST, ABDOMEN AND PELVIS WITHOUT CONTRAST ([id number]) INDICATIONS: severe lactic acidosis with leukocytosis TECHNIQUE: After the administration of oral contrast, 5 mm thick sections acquired from the lung apices to the s ymphysis pubis. 5 mm thick coronal and sagittal reformats acquired, with additional 7 mm coronal MIP reformats through the lungs. For radiation dose reduction, the following was used: automated expos ure control, adjustment of mA and/or kV according to patient size. COMPARISON: [facility], CT, ABD/PELVIS W/O CON (PNL), 09/22/2012, 11:37. [facility], CT, CT ANGIO CHEST PE, 09/04/2015, 12:06. FINDINGS: Image quality: Excellent. CHEST: Lungs and pleura: There are scattered areas of pulmonary opacity identified within the apices as well as an appearance of consolidative opacity within the bases, left greater than right. I lateral pleur al effusions are present. Mediastinum: Heart size is enlarged. Small focus of air is noted within the right atrium possibly re lated to recent catheter placement. Mild pericardial effusion. No mediastinal adenopathy by CT size criteria. There is mild aneurysmal dilation of the ascending thoracic aorta, measuring 43 mm, unchang ed. Esophagus is normal in caliber. No hiatal hernia. Chest wall: No axillary or supraclavicular adenopathy by size criteria. Thyroid gland is unremarkab le. ABDOMEN: Solid organs: Liver is enlarged. The spleen is not visualized. Gallbladder has been removed. Pancr eas demonstrates mild appearance of hazy appearance within the peripancreatic fat regions and pancrea tic organ contours. No free fluid is identified. No adrenal nodules. Both kidneys are normal in size , without hydronephrosis or nephrolithiasis. Peritoneum and bowel: Small and large bowel loops are normal in caliber and wall thickness. No free fluid or air. Mild fat stranding is noted adjacent to the duodenal bulb and distal stomach, extendi ng to the peripancreatic region, as above. Nodes and vessels: No retroperitoneal or mesenteric adenopathy by size criteria. Aorta and inferior vena cava are normal in size. Miscellaneous: No ventral hernias. PELVIS: Genitourinary: Bladder wall thickness is normal. Miscellaneous: No inguinal hernias or adenopathy. Bones: No suspicious bony lesions. No vertebral body compression fractures. IMPRESSION: 1. Small areas of patchy opacity within the lungs bilaterally as well is consolidative appearance in the left base. The latter can be indicative of atelectasis versus developing pneumonia. 2. Hazy contours of the pancreas as well as peripancreatic and adjacent. Duodenal/gastric fat strandi ng. Findings could be related to developing pancreatitis or potentially duodenitis or peptic ulcer di sease. Dictated by: Carol Sutton M.D. on 10/11/2016 at 11:07 Approved by: Carol Sutton M.D. on 10/11/2016 at 11:48
--- NOTE | 2016-10-11 12:15 | DRSVH ---
PROCEDURE: CT BRAIN WITHOUT CONTRAST ([id number]) INDICATIONS: fall TECHNIQUE: Noncontrast 4.5 mm thick angled axial sections acquired from the foramen magnum to the vertex, with c oronal reformats. COMPARISON: [facility], CT, BRAIN W/O CONTRAST, 09/26/2012, 10:45. [facility], CT, CT BRAIN WO CON, 10/10/2016, 19:26. FINDINGS: Image quality: Excellent. CSF spaces: Basal cisterns are patent. No extra-axial fluid collections. The ventricles are symmet porter in size and shape. Brain: There is hyperdensity along the tentorium and posterior falx, , appearing much more prominent /new when compared to prior exam. There is faint hyperdensity in the left frontal parietal regions, n ew compared to prior exam. It is noted that it is a somewhat peripheral appearance of enhancement wit h a more central area of low attenuation. There is a slight increased asymmetric prominence of the ri ght subdural space anteriorly compared to earlier exam. There are periventricular and deep white abhishek er chronic small vessel ischemic changes. There is intracranial internal carotid artery atherosclero sis. Skull and face: Calvarium and visualized facial bones appear intact, without suspicious lesions. Sinuses: Visualized sinuses demonstrate scattered areas of mucosal thickening. IMPRESSION: 1. New hyperdensities in the left frontal and parietal regions as above. These are highly suspicious for foci of hemorrhage. It is noted that there is an appearance of faint peripheral hyperdensity wit h low attenuation central portion. While this may simply be layering of hemorrhage, an underlying ma ss with partial enhancement cannot be definitively excluded. MRI with contrast may be obtained as cli nically indicated for additional evaluation and differentiation. 2. Hyperdensity and increased prominence of the tentorium as well as posterior falx, compared to marbella or exam. It is noted that CT chest abdomen pelvis dated 10/11/16 was without contrast. There remains opacification of the kidneys within the arterial phase without evidence of excretion suggesting marke dly diminished renal function. Appearance of apparent increased hyperdensity within the tentorium and falx is suggestive of residual contrast from cardiac catheterization on 10/10/16. Dictated by: Carol Sutton M.D. on 10/11/2016 at 11:48 Transcribed by: VICTOR MANUEL on 10/11/2016 at 12:14 Approved by: Carol Sutton M.D. on 10/11/2016 at 17:03
--- NOTE | 2016-10-11 17:45 | PCM.DC.MEX ---
Discharge Summary Date of Service Oct 11, 2016 Dates of Hospitalization Date of Hospital Admission Oct 10, 2016 at 20:22 Date of Expiration: Oct 11, 2016 Time of Expiration: 11:00 Providers: Admitting Physician: Vikki Ball DO Primary Care Physician: Miranda Attending Physician: John Caruso MD Diagnosis at Time of Acute respiratory failure with hypoxia STEMI Cardiogenic shock Closed head injury with cerebral contusion Procedures XRay, CTs & MRIs X-RAY CHEST ONE VIEW, PORTABLE IMPRESSION: Support lines as above. Questionable focal opacity versus artifact from pacer lead in the right upper lobe. Approved by: Carol Sutton M.D. on 10/10/2016 at 20:32 CT head without contrast 1. No acute intracranial processes Approved by: Carol Sutton M.D. on October 10, 2016 Invasive Procedures Percutaneous intervention on the circumflex and temporary pacemaker insertion. HISTORICAL DETAILS: This patient came in with a suspected lateral AR and syncope. I spoke with the patient's family, and after a prolonged discussion they agreed to let me proceed ahead with an angioplasty. The concerns about stenting him were: 1. He might need bypass surgery. 2. His noncompliance with medications and stents they felt were not a good idea. PROCEDURE: A temporary pacemaker was inserted because initially the patient was in 2:1 AV block with good blood pressure. However, he started developing a higher grade AV block and one time he was in 3:1 and then it appeared that he was in complete heart block. Lastly, while doing this, we were also able to cross the aortic valve somewhat serendipitously and he has a 30 mm gradient upon pullback. This would be suggestive of significant aortic stenosis. INTERVENTIONAL DETAILS: These are well enumerated in the procedure log, to which the reader and the coders are referred. Briefly, Voda guide run-through wire and prolonged 1 minute inflation was done with a 2.0 balloon. Final angiographic results were excellent with reduction of stenosis from 80% to 90% to about 30%. Next, temporary pacemaker was inserted via right femoral approach. This was a balloon-tipped pacemaker. It was floated and the patient was left at the rate of 50 in an asynchronous mode, and the output was left at 5 mV, the sensitivity was 0.5. Next, the patient will be admitted to CCU. Shan Chavez MD 10/10/16 [id number] Coronary PCI INDICATION: Syncope. PROCEDURE DETAILS: Please refer to the procedure log for complete details. Briefly, right femoral approach, 6-Albanian system. Further details are enumerated in the procedure log, to which the coders and the readers are referred. ANGIOGRAPHIC FINDINGS: 1. Heavy calcification of the AV groove is noted. 2. Left main no significant disease. 3. LAD in its proximal segment has a long tubular stenosis of about 40% to 50%. The diagonals have mild diffuse disease of 20% or so. 4. Circumflex in its proximal segment has a tight 80% to 90% lesion. This comes off at a bend of about 90 degrees. 5. Right coronary artery is diffusely diseased as well. There was damping of the catheter and the RCA has about 40% to 50% disease in its ostium, as mentioned it is diffusely diseased. In its mid segment there is a discrete lesion of about 50% to 60%. LEFT HEART CATHETERIZATION: A brief attempt was made to cross this valve. We decided not to cross this valve given the heavy calcification. IMPRESSION: I will discuss with the family members whether or not they want me to proceed ahead with an intervention on the circumflex. I think the patient will require aortic valve surgery rather soon. If I do end up intervening on his circumflex it will be a balloon angioplasty. Given the fact that on our EKG here his ST segments have seemed to have normalized and there is no way of knowing whether he is having any ongoing discomfort, it might be appropriate to manage him medically, especially since his neurological status at this point is at best tenuous. Depending upon what they decide, we will then either treat him medically or do a balloon angioplasty on the circumflex, and once he is more awake and alert he can be sent for aortic valve surgery. 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 Per the family's report the patient was in his normal state of health, besides a recent fall in the shower where the patient claimed to be uninjured, and heading to lunch when he fell backwards striking his head and subsequently following unconsciousness. The son was able to call 911 where they instructed him to begin CPR prior to a pulse check. EMS arrived some 3-5 minutes and the patient was found unresponsive with a GCS score of 3 lying in a pool of blood originating from an occiput contusion. Per ED report from EMS the patient had agonal breathing and equal and nonreactive pupils as well as runs of V. tach the patient was intubated in route using succinate and Versed. Family indicates that the patient has not been taking any medications including any anticoagulation and has been homeless living in his car for approximately one year. The patient one month ago was able to temporarily move into a hotel and begin receiving Social Security. In the [facility] ED the patient was taken to CT for head bleed and clear, FAST exam for abdominal injuries which was negative, however EKG changes including ST elevations in V3 through V6 and elevated troponin gave the patient a likely diagnosis of in STEMI and he was immediately taken to the cardiac catheterization lab where the patient received a balloon angioplasty to his proximal circumflex per nursing reports, the patient also developed a total heart block with temporary pacer in place, however the patient's blood pressure remained relatively stable and his heart rate became bradycardic into the mid to high 40s. The patient continues to have a worsening severe aortic stenosis with significant pressure gradient noted in the cardiac catheterization. 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 # Acute respiratory arrest, POA and active. - Patient was intubated and sedated in the field following a witnessed ground- level fall with head contusion resulting in an unconscious state - Per ED note EMS reports patient had a GCS score of 3 and was intubated for acute respiratory arrest - The patient remains intubated and sedated post cardiac catheterization for NSTEMI described below - Ventilation order set, with RT following - Initial ABG shows pH of 7.3 with pCO2 26 and pO2 170 - Sedation to be continued with fentanyl, currently holding propofol given relative hypotension Family requests compassion extubation and comfort care # Acute non-ST segment elevation myocardial infarction, POA and active. - In the [facility] ED EKG changes noted ST elevation in leads V3 through V6 consistent with acute lateral infarct - Troponins elevated at 0.44 at admission - Cardiology was consulted from the ED and the patient was taken back to the cardiac catheterization lab immediately after CT head noncontrast failed to reveal an acute intracranial bleed - Critical lesion noted in circumflex resulted in balloon angioplasty without stent placement - Cardiac catheterization failed to show any significant pathology consistent with ST changes in the lateral leads leading to a diagnosis of NSTEMI # Acute bradycardia, POA and improved. - Patient developed notable bradycardia into 40s secondary to reported complete heart block while on cardiac catheterization - Temporary paced maker placed while in cardiac catheter lab - Cardiology consulted # Acute high anion gap metabolic acidosis with respiratory compensation, POA and active. - CMP shows anion gap of 26 with bicarbonate of 17 - Initial ABG shows pH of 7.3 with pCO2 26 and pO2 170 - Repeat ABG pH of 7.4 with pCO2 of 14.4 and pO2 188 - ASA negative - methanol, ethylene glycol, ketones and lactic acid order - initial lactic acid has returned at 8.7, however this as a late add on the a blood draw and likely is inaccurate, it will be repeated - Monitor with serial BMPs # Acute hypotension, POA and active on vasopressors. - Patient has remained normotensive in ED as well as during cardiac catheterization - Upon arrival to CCU patient's systolic blood pressure remained in the 80s with maps in the 60s - Patient has received 3700 mL's of normal saline since arrival - 500 mL bolus normal saline failed to significantly improve blood pressures - Continue to monitor - Patient only has peripheral IV lines will require central venous access if significant pressor support is required currently awaiting CT C-spine clearance after fall # Acute Leukocytosis, POA and active - Family reports the patient was in his standard state of health prior to today' s events - Chest x-ray reported as questionable increased opacity versus artifact from overlying pacer lead within the right upper lobe. - Procalcitonin ordered and pending - UA and sputum culture ordered - Serial a.m. chest x-rays while intubated # Chronic anemia, POA and active - Hemoglobin of 11.6 with MCV of 99 - FAST exam performed in ED failed to reveal any acute chest or abdominal process - Chest x-ray failed to show a hemothorax - Anemia panel ordered - Monitor with serial CBC # Acute Thrombocytosis, POA and active - Platelet count of 636,000 - Likely elevated due to acute phase reactant nature of platelets - Monitor # Acute hyperglycemia, POA and improved - Blood glucose elevated at admission - Hemoglobin A1c ordered - Low dose correction scale regular insulin #. Severe lactic acidosis, POA and worsening. DVT prophylaxis: Heparin drip initiated in ED through cardiac catheterization currently discontinued will initiate subcutaneous heparin 12 hours postcardiac catheterization GI prophylaxis: Not indicated at this time CODE STATUS is changed to DNR/DNI. The patient requests comfort care. The patient will be placed on a morphine drip and comfort will be assured well he is compassion he extubated and all other active measures of support and treatment are reversed. Hospital course. This patient presented to the hospital after a syncopal episode with closed head injury. Initial CT scan was read as unremarkable. The patient had evidence of STEMI and was taken to the catheterization laboratory of acute intervention with balloon dilation of his circumflex artery. The patient had hypotension requiring vasopressors after this intervention as well as progressive lactic acidosis. Despite being intubated mechanically ventilated and supported he continued to deteriorate. The patient had minimal evidence of neurologic function as well. A repeat head CT indicated cerebral contusions versus early hemorrhage. Because of his papillary situation so that had discussions regarding level care with the family. Ultimately they were given the option of transfer to [facility] versus pursuing comfort care and they ultimately chose comfort care. I met with him in the morning at around 720 and reconfirmed their decision as well as going over the clinical situation. Those in attendance included ex- , son, and daughter. All were in agreement that comfort care was the decision. Exam Test 10/10/16 19:43 10/10/16 19:44 10/11/16 00:09 10/11/16 03:45 Neutrophils (%) (Auto) 72.8% (40-74) Lymphocytes (%) (Auto) 15.4% (14-46) Monocytes (%) (Auto) 10.9% (4-12) Eosinophils (%) (Auto) 0.1% (0-5) Basophils (%) (Auto) 0.3% (0-3) Prothrombin Time 11.4sec (8.1-12.5) Prothromb Time International Ratio 1.06ratio Magnesium Level 2.3mg/dL (1.6-2.6) Total Bilirubin 0.6mg/dL (0.0-1.2) Aspartate Amino Transf (AST/SGOT) 30U/L (0-50) Alanine Aminotransferase (ALT/SGPT) 12U/L (0-44) Alkaline Phosphatase 105U/L (25-160) Troponin T 0.447ug/L (0.0-0.011) Total Protein 6.2g/dL (6.4-8.4) Albumin 3.5g/dL (3.4-5.0) Salicylates Level < 3.0ug/mL (30-250) Acetaminophen Level < 15.0ug/mL Rx (10-25) Alcohols < 10mg/dL (0-10) Hold Blue Top Tube Received (Received) Creatine Kinase MB 16.6ng/mL (0.0-10.4) Creatine Kinase MB % 5.2% (0.0-5.0) Hold [place] Top Tube Received (Received) Total Creatine Kinase 447U/L (21-232) Procalcitonin 0.15ng/mL (0.00-0.08) Ketones Negative (Negative) White Blood Count 14.5th/mm3 (3.8-10.1) Red Blood Count 3.54mil/mm3 (4.40-5.80) Hemoglobin 11.4g/dL (13.8-17.2) Hematocrit 36.7% (41.0-50.0) Mean Corpuscular Volume 103.7fL (81-100) Mean Corpuscular Hemoglobin 32.2pg (27.0-35.0) Mean Corpuscular Hemoglobin Concent 31.1% (32.0-37.0) Red Cell Distribution Width 17.9% (12.3-15.4) Platelet Count 206bil/L (150-400) Sodium Level 145mEq/L (134-144) Potassium Level 5.8mEq/L (3.5-5.2) Chloride Level 102mEq/L (97-108) Carbon Dioxide Level 11mmol/L (18-29) Blood Urea Nitrogen 12mg/dL (8-27) Creatinine 1.41mg/dL (0.76-1.27) Estimat Glomerular Filtration Rate 54mL/min (>59) Glucose Level 85mg/dL (60-99) Calcium Level 7.3mg/dL (8.5-10.1) Pro-B-Type Natriuretic Peptide 80788id/mL (0-210) Hold Obrien Top Tube Received (Received) Test 10/11/16 05:25 Lactic Acid Level 17.2mmol/L (0.4-2.0) Time spent 60 minutes John Caruso MD Oct 11, 2016 17:45
== END 2016-10-11 11:10 | disposition expired | DRG 250 ==
LOC: SED 19:16 → EDUNIT# 19:16 → EDBD 19:16 → CCU 20:22
PROVIDERS: ADMIT Internal Medicine; ATTEND Internal Medicine
PROC: 02703ZZ Dilation of Coronary Artery, One Artery, Percutaneous Approach (ICD-10-PCS; principal; 2016-10-10)
PROC: 5A1935Z Respiratory Ventilation, Less than 24 Consecutive Hours (ICD-10-PCS; 2016-10-10)
PROC: B2111ZZ Fluoroscopy of Multiple Coronary Arteries using Low Osmolar Contrast (ICD-10-PCS; 2016-10-10)
PROC: 4A023N7 Measurement of Cardiac Sampling and Pressure, Left Heart, Percutaneous Approach (ICD-10-PCS; 2016-10-10)
PROC: 5A1213Z Performance of Cardiac Pacing, Intermittent (ICD-10-PCS; 2016-10-10)
PROC: 4A033R1 Measurement of Arterial Saturation, Peripheral, Percutaneous Approach (ICD-10-PCS; 2016-10-11)
PROC: 02HV33Z Insertion of Infusion Device into Superior Vena Cava, Percutaneous Approach (ICD-10-PCS; 2016-10-11)
DX: I21.4 Non-ST elevation (NSTEMI) myocardial infarction (principal); J96.01 Acute respiratory failure with hypoxia; S06.339A Contusion and laceration of cerebrum, unspecified, with loss of consciousness of unspecified duration, initial encounter; I44.2 Atrioventricular block, complete; E87.2 Acidosis; Z59.0 Homelessness; I25.10 Atherosclerotic heart disease of native coronary artery without angina pectoris; I35.0 Nonrheumatic aortic (valve) stenosis; Z91.14 Patient's other noncompliance with medication regimen; Z51.5 Encounter for palliative care; Z86.711 Personal history of pulmonary embolism; I95.9 Hypotension, unspecified; D64.9 Anemia, unspecified; D47.3 Essential (hemorrhagic) thrombocythemia; R73.9 Hyperglycemia, unspecified; D72.829 Elevated white blood cell count, unspecified; Z66 Do not resuscitate; R57.0 Cardiogenic shock; Z85.71 Personal history of Hodgkin lymphoma; R40.2432 Glasgow coma scale score 3-8, at arrival to emergency department; W18.39XA Other fall on same level, initial encounter; Y92.009 Unspecified place in unspecified non-institutional (private) residence as the place of occurrence of the external cause